=== PATIENT | female | born 1960 | race American Indian/Alaskan Native ===

== ENCOUNTER 2021-04-18 13:55 | Outpatient (CLI) | payer MEDICAID ==
--- NOTE | 2021-04-18 14:57 | XRay Report ---
LEFT HIP 3 INDICATION: PAIN IN LEFT HIP. COMPARISON: None. IMPRESSION: Severe osteoarthritic changes are identified at the left hip. There is near complete elodia int space narrowing, articular surface sclerosis and numerous subchondral cysts in the femoral head. No acute fracture or bone lesion is detected. RIGHT FEMUR 2 VIEWS INDICATION: PAIN IN LEFT HIP. COMPARISON: None. IMPRESSION: No acute osseous or soft tissue abnormality. Mild degenerative changes are noted at t he hip and knee. There is an approximate 1 cm rounded calcification just medial to the right femoral neck which may represent an intra-articular calcified foreign body. Signer Name: Guilherme Mcclain Jr, MD Signed: 04/18/2021 2:52 PM Workstation Name: [id number]
== END 2021-04-18 13:56 | disposition home or self-care (01) ==
LOC: XRAY 13:55
PROVIDERS: ATTEND Orthopaedic Surgery
DX: M16.12 Unilateral primary osteoarthritis, left hip (principal); M17.12 Unilateral primary osteoarthritis, left knee